=== PATIENT | male | born 1975 | race Caucasian/White ===

== ENCOUNTER 2017-08-06 19:42 | Emergency (ER) | payer BC ==
[2017-08-06] MEDS ORDERED: Dexamethasone 10 MG/ML VIAL ONE (22:17)
[2017-08-06] MEDS ORDERED: Ibuprofen 800 MG TAB ONE (22:17)
== END 2017-08-06 22:32 | disposition home or self-care (01) ==
LOC: MADERS 19:42
DX: M54.31 Sciatica, right side (principal); K52.9 Noninfective gastroenteritis and colitis, unspecified; I10 Essential (primary) hypertension; F98.8 Other specified behavioral and emotional disorders with onset usually occurring in childhood and adolescence; Z79.899 Other long term (current) drug therapy
CPT/HCPCS: 96372; J1100

== ENCOUNTER 2019-01-31 04:39 | Outpatient (CLI) | payer BC ==
[2019-01-31 05:20] LABS: #Basophils 0.1 thou/uL (0.0-0.2); #Eosinphils 0.1 thou/uL (0.0-0.7); #Lymphocytes 2.3 thou/uL (1.20-3.40); #Monocytes 0.5 thou/uL (0.11-0.59); #Neutrophils 4.1 thou/uL (1.40-6.50); %Eosinophils 1.6 % (0.0-10.0); %Lymphocytes 32.3 % (21.0-51.0); %Monocytes 7.1 % (0.0-10.0); Hemoglobin 16.1 g/dL (14.0-18.0); Mean Corpuscular HGB CONC 32.8 g/dL (32.0-36.0); Mean Corpuscular Hemoglobin 30.1 pg (27.0-31.0); Mean Platelet Volume 6.8 fL (7.4-10.4); Platelet Count 234 thou/uL (130-400); Red Blood Cell (RBC) Count 5.33 mill/uL (4.70-6.10); White Blood Cell (WBC) Count 7.1 thou/uL (4.8-10.8)
[2019-01-31 05:56] LABS: ALT (SGPT) 36 U/L (8-55); AST (SGOT) 23 U/L (5-34); Albumin 4.1 g/dL (3.5-5.0); Alkaline Phosphatase 49 U/L (40-110); Anion Gap 15 mmol/L (10-20); BUN (Urea Nitrogen) 13 mg/dL (8.9-20.6); Bilirubin, Total 0.4 mg/dL (0.2-1.2); Calc. Creatinine Clearance 0 mL/min (70-130); Calcium 9.1 mg/dL (7.8-10.44); Carbon Dioxide 24 mmol/L (22-29); Cardiac Risk 4.6 (Less than 4.5); Chloride 107 mmol/L (98-107); Cholesterol 162 mg/dl (< 200 Desired); Estimated GFR-MDRD 83; Globulin 2.8 g/dL (2.4-3.5); Glucose 107 mg/dL (70-105); HDL Cholesterol 35 mg/dL (>60 Neg Risk); LDL Cholesterol, Calculated 100 mg/dL; Potassium 4.5 mmol/L (3.5-5.1); Protein, Total 6.9 g/dL (6.0-8.3); Sodium 141 mmol/L (136-145); Triglycerides 135 mg/dL (Less than 150)
[2019-01-31 06:13] LABS: Thyroid Stimulating Hormone 12.4291 uIU/mL (0.35-4.94)
[2019-01-31 11:35] LABS: Hemoglobin A1c 5.5 % (4.0-6.0)
[2019-01-31 12:02] LABS: Vitamin D, 25 Hydroxy 29.1 ng/ml (> 30.0)
== END 2019-01-31 04:40 | disposition home or self-care (01) ==
LOC: MADLAB 04:39
PROVIDERS: ATTEND Family Medicine
DX: Z00.00 Encounter for general adult medical examination without abnormal findings (principal)
CPT/HCPCS: 36415; 80053; 80061; 82306; 83036; 84443; 85025

== ENCOUNTER 2020-10-18 15:46 | Outpatient (CLI) | payer OTHER | END 2020-10-18 15:47 | disposition home or self-care (01) | LOC: MADRAD 15:46 | PROVIDERS: ATTEND Family Medicine | DX: M54.41 Lumbago with sciatica, right side (principal); M47.816 Spondylosis without myelopathy or radiculopathy, lumbar region | CPT/HCPCS: 72100 ==